=== PATIENT | male | born 1990 | race Caucasian/White ===

== ENCOUNTER 2018-02-13 09:51 | Emergency (ER) | payer MEDICAID ==
[~2018-02-13] VITALS: Ht 180.3 cm; Wt 76.4 kg
[2018-02-13 09:55] VITALS: Ht 180.3 cm; Wt 76.4 kg
[2018-02-13] MEDS ORDERED: ZOLOFT50 MG PO (10:40)
[2018-02-13 10:53] VITALS: BP 132/94
== END 2018-02-13 10:54 | disposition home or self-care (01) ==
LOC: EDBD 09:51 → D.ER 09:51
DX: F43.22 Adjustment disorder with anxiety (principal); F41.0 Panic disorder [episodic paroxysmal anxiety]